=== PATIENT | female | born 1935 | race Asian ===

== ENCOUNTER → 2022-11-24 | Outpatient (CLI) | payer MEDICARE, OTHER | END | disposition home or self-care (01) | LOC: RADPV 13:48 | PROVIDERS: ATTEND Student in an Organized Health Care Education/Training Program | DX: M85.88 Other specified disorders of bone density and structure, other site (principal); M81.0 Age-related osteoporosis without current pathological fracture; E83.52 Hypercalcemia | CPT/HCPCS: 77080 ==